=== PATIENT | female | born 2000 | race Caucasian/White ===

== ENCOUNTER 2023-06-05 18:06 | Emergency (ER) | payer OTHER, SELFPAY ==
[2023-06-05] VITALS (12 sets, daily range): BP systolic 102–132; BP diastolic 61–94; PULSE 84–123; RESP 13–22; TEMP 36.6; O2SAT 98–100
--- NOTE | ~2023-06-05 | XR_ITS ---
EXAMINATION: XR chest 2V DATE: 06/05/2023 18:36 INDICATION: Palpitations. Dizziness. Shortness of breath. TECHNIQUE: Frontal and lateral views of the chest were obtained. COMPARISON: None. FINDINGS: There is no pneumonia, pleural effusion, or pneumothorax. The heart size is normal. Surgica l clips in the right upper quadrant are likely from cholecystectomy. IMPRESSION: 1. No acute cardiopulmonary disease. Reviewed, dictated and finalized at location E.
--- NOTE | 2023-06-05 18:11 | ECG_ITS ---
Measurements Intervals [place] Rate: 98 P: 53 MT: 142 QRS: 37 QRSD: 76 T: 40 QT: 333 QTc: 425 Interpretive Statements SINUS RHYTHM POOR R-WAVE PROGRESSION NONSPECIFIC ST ABNORMALITY ABNORMAL ECG NO PREVIOUS ECG AVAILABLE FOR COMPARISON Electronically Signed On 06-06-2023 10:03:37 CDT by Sameer Worrell M.D.
[2023-06-05 18:23] LABS: Basophils Absolute Auto 0.1 K/mm3 (0.0-0.1); Basophils Percent Auto 0.5 % (0.2-1.2); Eosinophils Absolute Auto 0.1 K/mm3 (0-0.3); Eosinophils Percent Auto 1.4 % (0-4.4); Hematocrit 41.2 % (37.0-47.0); Hemoglobin 13.3 g/dL (12.0-15.0); Immature Granulocyte Absolute 0.02 K/mm3 (0.00-0.031); Immature Granulocyte Percent A 0.2 % (0-0.5); Lymphocytes Absolute Auto 3.73 K/mm3 (0.9-3.2); Lymphocytes Percent Auto 40.4 % (18.3-44.2); Mean Corpuscular HGB Conc 32.3 g/dl (32-36); Mean Corpuscular Hemoglobin 26.4 pg (26-34); Mean Corpuscular Volume 81.9 fl (80-100); Mean Platelet Volume 10.2 fl (7.4-10.4); Monocytes Absolute Auto 0.5 K/mm3 (0.1-0.6); Monocytes Percent Auto 5.5 % (2.6-8.5); Neutrophils Absolute Auto 4.8 K/mm3 (1.3-6.7); Platelet Count Result 330 k/mm3 (150-375); Red Blood Count 5.03 M/mm3 (4.2-5.4); Red Cell Distribution Width 14.6 % (11.5-14.5); White Blood Count 9.2 K/mm3 (4.5-10.0)
[2023-06-05 18:34] LABS: INR 0.9; Prothrombin Time 13.1 Seconds (11.1-14.7)
[2023-06-05 18:35] LABS: Partial Thromboplastin Time 30.4 SECONDS (22.3-36.8)
[2023-06-05 18:36] LABS: Alanine Aminotransferase 30 U/L (6-35); Albumin Level 4.3 g/dL (3.5-5.1); Alkaline Phosphatase 103 U/L (38-126); Anion Gap 8 mmol/L (8-16); Aspartate Amino Transferase 30 U/L (14-36); Bilirubin,Total 0.2 mg/dL (0.2-1.3); Blood Urea Nitrogen 13 mg/dL (7-17); Calcium 9.1 mg/dL (8.4-10.2); Carbon Dioxide 25 mmol/L (22-30); Chloride 104 mmol/L (98-107); Estimated CRCL calculation 86 ml/min; Estimated Glomerular Filt Rate > 60; Glucose 121 mg/dL (65-110); Lipase 66 U/L (23-300); Potassium 3.6 mmol/L (3.4-5.0); Sodium 137 mmol/L (137-145)
--- NOTE | 2023-06-05 18:57 | ED.ARRPALP ---
HPI - Arrhythmia/Palpitations General Chief Complaint: Arrhythmia/Palpitations <Laure Burciaga PA-C - Last Filed: 06/05/23 21:15> Stated Complaint: palpatations <RAMA Naranjo Last Filed: 06/05/23 21:15> Time Seen by Provider: 06/05/23 18:55 <RAMA Naranjo Last Filed: 06/05/23 21:15> Source: patient <RAMA Naranjo Last Filed: 06/05/23 21:15> Mode of arrival: ambulatory <RAMA Naranjo Last Filed: 06/05/23 21:15> Limitations: no limitations <RAMA Naranjo Last Filed: 06/05/23 21:15> History of Present Illness HPI narrative: This is a 23 year old female that presents to the ER for an episode of heart racing. Reports she was at work and started to feel her heart racing. She started to feel lightheaded and short of breath, like she was going pass out. 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 Denies chest pain or lower extremity edema. <Laure Burciaga PA-C - Last Filed: 06/05/23 21:15> Related Data Allergies/Adverse Reactions: Allergies Allergy/AdvReac Type Severity Reaction Status Date / Time measles, mumps, and rubella Allergy Anaphylaxis Verified 06/05/23 18:13 vaccine <Laure Burciaga PA-C - Last Filed: 06/05/23 21:15> Review of Systems Review of Systems: CONSTITUTIONAL: Denies fever CARDIOVASCULAR: Reports palpitations. Denies chest pain, or edema. RESPIRATORY: Reports dyspnea. <RAMA Naranjo Last Filed: 06/05/23 21:15> All systems reviewed & are unremarkable except as noted in HPI and below <Laure Burciaga PA-C - Last Filed: 06/05/23 21:15> [facility] Past Medical History Medical History: Medical History (Updated 06/06/23 @ 00:00 by Background Daemon) History of anxiety <Laure Burciaga PA-C - Last Filed: 06/05/23 21:15> Social History Social History: Social History (Updated 06/05/23 @ 19:31 by Laure Burciaga PA-C) Smoking status: Former smoker <Laure Burciaga PA-C - Last Filed: 06/05/23 21:15> Exam Narrative: GENERAL: Well-appearing, well-nourished, and in no acute distress. HEAD: Normocephalic, atraumatic. EYES: EOMI. ENT: Nares clear, no rhinorrhea or epistaxis. Mucous membranes moist. Oropharynx without tonsillar hypertrophy exudate or other lesions. NECK: No JVD CHEST: Clear to auscultation. No respiratory distress. No wheezes rales or rhonchi HEART: Regular rate and rhythm. No murmur heard. Normal peripheral pulses. EXTREMITIES: Normal range of motion. No edema. SKIN: Warm, dry, no rash. NEURO: No focal deficits. Alert and oriented x3. 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 I performed all aspects of the MDM as documented w/ the following additions: 23-year-old female presenting with tachycardia. Patient is being worked up for this on an outpatient basis. Her workup here was negative for concerning findings. Patient be discharged. All questions answered. Patient in agreement w/ disposition. <Wai Gardner MD - Last Filed: 06/06/23 19:16> Vital Signs Vital signs: Vital Signs Temperature 97.8 F 06/05/23 18:11 Pulse Rate 123 H 06/05/23 18:11 Respiratory Rate 17 06/05/23 18:11 Blood Pressure 132/94 H 06/05/23 18:11 Pulse Oximetry 98 06/05/23 18:11 Temperature 97.8 F 06/05/23 18:11 Pulse Rate 88 06/05/23 20:33 Respiratory Rate 18 06/05/23 20:33 Blood Pressure 102/61 06/05/23 20:03 Pulse Oximetry 100 06/05/23 20:33 <Laure Burciaga PA-C - Last Filed: 06/05/23 21:15> Vital Signs Temperature 97.8 F 06/05/23 18:11 Pulse Rate 123 H 06/05/23 18:11 Respiratory Rate 17 06/05
[2023-06-05 19:08] LABS: Troponin I < 0.012 ng/mL (0.000-0.034)
--- NOTE | 2023-06-05 19:12 | PC.NURSE ---
Report received from JEWEL Barry. Assumed care of patient at this time.
[2023-06-05] MEDS: SODIUM CHLORIDE 0.9% IV 1,000 ML 999 ML IV CONT (19:54)
== END 2023-06-05 21:24 | disposition home or self-care (01) ==
PROVIDERS: Preventive Medicine Aerospace Medicine; Emergency Provider Physician Assistant
DX: R00.2 Palpitations (principal); R94.31 Abnormal electrocardiogram [ECG] [EKG]
CPT/HCPCS: 36415; 71046; 80053; 83690; 84484; 85025; 85380; 85610; 85730; 93005; 96360; 99284; J7030

== ENCOUNTER 2023-11-11 13:27 | Emergency (ER) | payer OTHER, SELFPAY ==
--- NOTE | ~2023-11-11 | CT_ITS ---
EXAMINATION: CT abdomen pelvis w con INDICATION: Left lower quadrant pain TECHNIQUE: Computed tomographic images of the abdomen and pelvis were obtained after the administrati on of 100 cc of Omnipaque 350 intravenous contrast. The dose-length product (DLP) was 1065.27 mGy-cm. Automated exposure control and iterative reconstruction technique were employed. COMPARISON: None available FINDINGS: The lung bases are clear. The heart size is normal. Changes of cholecystectomy are noted. T he liver, spleen, pancreas, and adrenal glands are normal. The kidneys are unremarkable. No pathologi purvi enlarged abdominal or pelvic lymph nodes are identified. No free intraperitoneal gas or evidenc e of bowel obstruction. The appendix is normal. A small volume of free fluid in the pelvis is likely physiologic. There appears to be a corpus luteum of the right ovary. A moderate volume of colonic sto ol is present. IMPRESSION: 1. No CT correlate for the patient's symptoms. Reviewed, dictated and finalized at location F. 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
[2023-11-11 13:30] VITALS: BP 137/82; PULSE 119; RESP 16; TEMP 36.4; O2SAT 100
[2023-11-11 15:02] LABS: Basophils Absolute Auto 0.1 K/mm3 (0.0-0.1); Basophils Percent Auto 0.6 % (0.2-1.2); Eosinophils Absolute Auto 0.2 K/mm3 (0-0.3); Eosinophils Percent Auto 1.9 % (0-4.4); Hematocrit 44.6 % (37.0-47.0); Hemoglobin 13.7 g/dL (12.0-15.0); Immature Granulocyte Absolute 0.04 K/mm3 (0.00-0.031); Immature Granulocyte Percent A 0.4 % (0-0.5); Lymphocytes Absolute Auto 2.87 K/mm3 (0.9-3.2); Lymphocytes Percent Auto 29.9 % (18.3-44.2); Mean Corpuscular HGB Conc 30.7 g/dl (32-36); Mean Corpuscular Hemoglobin 25.6 pg (26-34); Mean Corpuscular Volume 83.2 fl (80-100); Mean Platelet Volume 10.3 fl (7.4-10.4); Monocytes Absolute Auto 0.9 K/mm3 (0.1-0.6); Monocytes Percent Auto 9.4 % (2.6-8.5); Neutrophils Absolute Auto 5.5 K/mm3 (1.3-6.7); Neutrophils Percent Auto 57.8 % (45.5-73.1); Platelet Count Result 341 k/mm3 (150-375); Red Blood Count 5.36 M/mm3 (4.2-5.4); Red Cell Distribution Width 14.4 % (11.5-14.5); White Blood Count 9.6 K/mm3 (4.5-10.0)
[2023-11-11 15:03] LABS: Add Urine Microscopic? NO; Appearance Urine Clear (Clear); Bilirubin Urine Negative (Negative); Blood Urine Negative (Negative); Color Urine Yellow (Yellow); Glucose Urine UA Negative (Negative); Ketones Urine Trace mg/dL (Negative); Leukocyte Esterase Ur Negative LEU/UL (Negative); Nitrate Urine Negative (Negative); Protein Urine Negative (Negative); Specific Grav Ur 1.028 (1.001-1.035); Urobilinogen Urine 0.2 mg/dL (<2.0)
[2023-11-11 15:10] LABS: Alanine Aminotransferase 35 U/L (6-35); Albumin Level 3.8 g/dL (3.5-5.1); Alkaline Phosphatase 105 U/L (38-126); Anion Gap 7 mmol/L (8-16); Aspartate Amino Transferase 35 U/L (14-36); Bilirubin,Total 0.3 mg/dL (0.2-1.3); Blood Urea Nitrogen 12 mg/dL (7-17); Calcium 8.9 mg/dL (8.4-10.2); Carbon Dioxide 26 mmol/L (22-30); Chloride 107 mmol/L (98-107); Estimated CRCL calculation 114 ml/min; Estimated Glomerular Filt Rate > 60; Glucose 81 mg/dL (65-110); Lipase 65 U/L (23-300); Potassium 4.4 mmol/L (3.4-5.0); Sodium 140 mmol/L (137-145)
--- NOTE | 2023-11-11 16:34 | ED.ABDPAIN ---
HPI - Abdominal Pain General Chief Complaint: Abdominal Pain Stated Complaint: abd pain Time Seen by Provider: 11/11/23 14:34 History of Present Illness HPI narrative: Patient is a 23-year-old female presenting with abdominal pain. Patient states that last week she had profuse diarrhea. This has resolved and she now has worsening left-sided abdominal pain. States that she is passing gas but she has not had an actual bowel movement for several days. Reports nausea but no vomiting. She has been taking dicyclomine which has been helping. No vaginal bleeding or discharge. No dysuria, hematuria, flank pain. No fevers. No further complaints. Related Data Allergies Allergy/AdvReac Type Severity Reaction Status Date / Time measles, mumps, and rubella Allergy Anaphylaxis Verified 06/05/23 18:13 vaccine Review of Systems Review of Systems: All systems reviewed & are unremarkable except as noted in HPI and below PMFSH Past Medical History Medical History History of anxiety Social History Social History Smoking status: Former smoker Exam Narrative: GENERAL: Well-appearing, well-nourished, and in no acute distress. HEAD: Normocephalic, atraumatic. EYES: PERRLA and EOMI. ENT: Mucous membranes moist. NECK: Supple. CHEST: No respiratory distress. HEART: Regular rate and rhythm. ABDOMEN: Soft, + Tender left lower quadrant, no guarding or rebound EXTREMITIES: Normal range of motion. No edema. SKIN: Warm, dry, no rash. NEURO: No focal deficits. Alert and oriented x3. PSYCH: Normal mood and affect. Course Vital Signs Vital signs: Vital Signs Temperature 97.6 F 11/11/23 13:30 Pulse Rate 119 H 11/11/23 13:30 Respiratory Rate 16 11/11/23 13:30 Blood Pressure 137/82 11/11/23 13:30 Pulse Oximetry 100 11/11/23 13:30 Oxygen Delivery Room Air 11/11/23 13:30 Temperature 97.6 F 11/11/23 13:30 Pulse Rate 119 H 11/11/23 13:30 Respiratory Rate 16 11/11/23 13:30 Blood Pressure 137/82 11/11/23 13:30 Pulse Oximetry 100 11/11/23 13:30 Oxygen Delivery Room Air 11/11/23 13:30 MDM - Abdominal Pain MDM Narrative Medical decision making narrative: 23-year-old female presenting with abdominal pain. Vitals stable. Exam remarkable for the above. Blood work in urine are unremarkable. Lipase is normal. CT abdomen pelvis without acute abnormalities. On re-evaluation, the patient states that she does feel improved following Zofran and dicyclomine. She feels comfortable with follow-up with her PCP. States that she is getting a referral for GI as well. Appropriate return precautions given. Discharged stable condition. Differential Diagnosis Differential diagnosis: Likely abdominal pain, constipation, diverticulitis and gastroenteritis Medical Records Attestation: I reviewed the patient's medical records. Lab Data Attestation: I reviewed the patient's lab results. 11/11/23 14:51 11/11/23 14:51 Labs: Lab Results 11/11/23 Range/Units 14:51 WBC 9.6 (4.5-10.0) K/mm3 RBC 5.36 (4.2-5.4) M/mm3 Hgb 13.7 (12.0-15.0) g/dL Hct 44.6 (37.0-47.0) % MCV 83.2 (80-100) fl MCH 25.6 L (26-34) pg MCHC 30.7 L (32-36) g/dl RDW 14.4 (11.5-14.5) % Plt Count 341 (150-375) k/mm3 MPV 10.3 (7.4-10.4) fl Immature Gran % (Auto) 0.4 (0-0.5) % Neut % (Auto) 57.8 (45.5-73.1) % Lymph % (Auto) 29.9 (18.3-44.2) % [place] % (Auto) 9.4 H (2.6-8.5) % Eos % (Auto) 1.9 (0-4.4) % Baso % (Auto) 0.6 (0.2-1.2) % Lymph # (Auto) 2.87 (0.9-3.2) K/mm3 [place] # (Auto) 0.9 H (0.1-0.6) K/mm3 Eos # (Auto) 0.2 (0-0.3) K/mm3 Baso # (Auto) 0.1 (0.0-0.1) K/mm3 Abs Immat Gran (auto) 0.04 H (0.00-0.031) K/mm3 Absolute Neuts (auto) 5.5 (1.3-6.7) K/mm3 Absolute Nucleated RBC 0.0 (0.0-0.012) K/mm3 Nucleated RBC
[2023-11-11] MEDS: SODIUM CHLORIDE 0.9% IV 1,000 ML 999 ML IV CONT (16:46)
[2023-11-11] MEDS: ONDANSETRON INJ 4 MG/2 ML VIAL IV PUSH (16:47)
[2023-11-11] MEDS: DICYCLOMINE HCL 10 MG CAPSULE 20 MG PO (16:47)
== END 2023-11-11 18:53 | disposition home or self-care (01) ==
PROVIDERS: Emergency Provider Emergency Medicine
DX: R10.9 Unspecified abdominal pain (principal); Z87.891 Personal history of nicotine dependence
CPT/HCPCS: 36415; 74177; 80053; 81003; 81025; 83690; 85025; 96361; 96374; 99284; A9270; J2405; J7030; Q9967